=== PATIENT | male | born 1955 | race Caucasian/White ===

== ENCOUNTER 2019-01-14 23:46 | Emergency (ER) | payer MEDICAID, OTHER ==
[~2019-01-14] VITALS: Ht 172.7 cm; Wt 80.0 kg
[2019-01-15 02:14] LABS: BASOPHILS % 0.8 % (0.0-2.0); EOSINOPHILS % 8.3 % (0.0-5.0); HEMATOCRIT. 45.6 % (42.0-52.0); HEMOGLOBIN. 15.7 g/dL (14.0-18.0); LYMPHOCYTES % 34.1 % (20.0-50.0); MEAN CORPUSCULAR HEMOGLOBIN 33.6 pg (28.0-32.0); MEAN CORPUSCULAR VOLUME 97.7 fL (80.0-94.0); MEAN PLATELET VOLUME 7.3 fl (7.4-10.4); NEUTROPHILS % 49.8 % (40.0-76.0); PLATELET 382 x1000/uL (130-400); RED BLOOD CELL COUNT 4.67 mill/uL (4.7-6.1); RED CELL DISTRIBUTION WIDTH 14.6 % (11.6-14.6)
[2019-01-15 02:17] LABS: CHLORIDE 110 mEq/L (98-107)
[2019-01-15 02:34] LABS: ETHANOL BLOOD 302 mg/dL
[2019-01-15 06:00] VITALS: BP 153/103
== END 2019-01-15 07:23 | disposition left against medical advice (07) ==
LOC: ER 23:46
DX: F10.229 Alcohol dependence with intoxication, unspecified (principal); Y90.8 Blood alcohol level of 240 mg/100 ml or more
CPT/HCPCS: 36415; 80320; 99283; G0480